=== PATIENT | male | born 2000 | race Asian ===

== ENCOUNTER 2021-10-06 05:06 | Emergency (ER) | payer BC, SELFPAY ==
[2021-10-06 05:12] VITALS: PULSE 64; RESP 24; TEMP 36.8; O2SAT 100
--- NOTE | 2021-10-06 05:18 | ED.GENADUL_ITS ---
Discharge Plan Disposition Patient Disposition: HOME Condition: Good Discharge Details Chief Complaint: Nausea/Vomit/Diar Clinical Impression: Vomiting Primary Care Provider: None,None ED Provider: Valente Becerra Home Meds and New Rx's Prescriptions: No Action No Known Home Meds Discharge Instructions Instructions: Ondansetron (By mouth), Acute Nausea and Vomiting (ED) Additional Instructions: At this time your laboratory work-up is returned and is very reassuring. There is no evidence of pancreatitis or gallbladder problem. New symptoms at this time appear consistent with a reaction likely to something that you ate. Please take the Zofran as needed for nausea. Stick with a mild liquid diet for the next 12 to 24 hours and then gradually advance her diet with crackers, oatmeal, bananas and rice. Avoid fatty and greasy foods. If you notice any worsening of your symptoms, or any new symptoms such as vomiting, diarrhea, fever, chills, shortness of breath, chest pain, numbness, weakness, or fainting , please return immediately to the emergency department for reevaluation. Please follow up with your primary care provider as soon as possible for reassessment and reevaluation. As always, it was a pleasure participating in your medical care today. Medical Decision Making This is a 21-year-old male who presents today for vomiting. Patient states that starting at 1 AM this evening he has had multiple persistent episodes of vomiting throughout the night. He states that he is now just vomiting up bile. He denies any hematemesis. He denies abdominal pain but does admit to intermittent cramping. He denies any diarrhea. He denies any other sick contacts. Patient did go out to eat and ate the [employer] [place]. He states that no one else got sick go from the restaurant. He does smoke marijuana and smokes 1-2 joints per day occasionally. He denies any change in frequency, or use. He denies any alcohol except for a single beer this evening. No other complaints at this time. No other modifying factors. Physical exam demonstrates dry mucous membranes, no pain to McBurney's point. Negative Telles sign. Differential is highest for gastroenteritis, potentially foodborne. Will give Zofran, rehydrate evaluate for pancreatitis. Symptoms may be secondary to cyclic vomiting syndrome, but he denies any history of this. Will monitor closely and reassess. 6:14 AM On reassessment patient has complete resolution of his symptoms. He is able to tolerate p.o. He feels better. He feels comfortable and would like to go home. Laboratory work-up demonstrates no white count bandemia or left shift. BUN and anion gap are slightly elevated, reflective of his mild dehydration. Lipase is normal. Repeat abdominal exam shows no signs of an acute surgical abdomen. Signs and symptoms appear consistent with mild gastroenteritis, potentially from something he ate. Cyclic vomiting syndrome seems less likely at this time. Patient will go home with Zofran. Recommend liquid diet for the next 12 to 24 hours. Discussed red flags which to return. I have extensively reviewed the treatment plan and discharge instructions with the patient. I have addressed all patient concerns at this time. The patient was made aware of what symptoms to monitor for that would warrant a return to the emergency department. Discussed the plan with the patient, they demonstrate verbal understanding and agreement with our assessment and plan at this time. The documentation in this chart was dictated using [employer] dictation software. Please excuse any dictation errors. HPI General Date/Time Provider Initiated Documentation: 10/06/21 05:08 . HPI Narrative: This is a 21-year-old male who presents today for vomiting. Patient states that starting at 1 AM this evening he has had multiple persistent episodes of vomiting throughout the night. He states that he is now just vomiting up bile. He denies any hematemesis. He denies abdominal pain but does admit to intermitt ent cramping. He denies any diarrhea. He denies any other sick contacts. Patient did go out to eat and ate the [employer] [place]. He states that no one else got sick go from the restaurant. He does smoke marijuana and smokes 1- 2 joints per day occasionally. He denies any change in frequency, or use. He denies any alcohol except for a single beer this evening. No other complaints at this time. No other modifying factors. Related Data Home Medications Medication Instructions Recorded Confirmed Unknown [No Known Home Meds] 10/06/21 10/06/21 Allergies Allergy/AdvReac Type Severity Reaction Status Date / Time No Known Allergies Allergy Unverified 10/06/21 05:16 General Stated Complaint: Nausea/Vomit/Diar MAXWELL: 3 Review of Systems All systems reviewed & are unremarkable except as noted in HPI and below PFSH All Active Problems (Updated 10/06/21 @ 06:17 by Valente Becerra DO) Vomiting (Acute) Social History Smoking/Tobacco Use Status: Current every day Tobacco Type: e-cigarettes Smoking risk assessment performed?: Yes Alcohol Intake: current Alcohol Intake frequency: a few times a week Alcohol type: beer Drug use: Occasionally Substance use type: marijuana Exam Narrative Exam Narrative: 1.Const: Well-nourished, Well-developed, appearing stated age 2.Eyes: PERRL, no conjunctival injection, and symmetrical lids. 3.ENT: Atraumatic external nose and ears. Dry t MM. Neck: Symmetric, trachea midline, No thyromegaly. 4.CVS: +S1/S2, No murmurs or gallops. Peripheral pulses 2+ and equal in all extremities. Brisk capillary refill in all extremities. 5.RESP: Unlabored respiratory effort. Clear to auscultation bilaterally. No wheezes rales or rhonchi 6.GI: Soft, Nontender/Nondistended, No hepatosplenomegaly. No guarding or rebound. No pain at McBurney's point. Negative Telles sign 7.MSK: Normocephalic/Atraumatic, Extremities w/o deformity or ttp No cyanosis or clubbing, Normal movement of all extremities 8.Skin: Warm, Dry. No rashes or lesions. 9.Neuro: slip feeder II-XII grossly intact. Sensation grossly intact, no focal neurologic deficits. 10.Psych: (AAO) x3. Appropriate mood and affect Course Vital Signs Vital signs: Vital Signs Temperature 36.8 C 10/06/21 05:12 Pulse 64 10/06/21 05:12 Respiratory Rate 24 10/06/21 05:12 Pulse Oximetry 100 10/06/21 05:12 Temperature 36.8 C 10/06/21 05:12 Temperature Source Skin 10/06/21 05:12 Pulse 64 10/06/21 05:12 Respiratory Rate 24 10/06/21 05:12 Pulse Oximetry 100 10/06/21 05:12 Oxygen Delivery Method Room Air 10/06/21 05:12 Oxygen Flow Rate 0 10/06/21 05:12
[2021-10-06 05:27] VITALS: BP 138/82
[2021-10-06] MEDS: Normal Saline 1,000 ML 1000 ML IV (05:28)
[2021-10-06] MEDS: Ondansetron 4 MG/2 ML VIAL IVP (05:28)
[2021-10-06 05:39] LABS: ALT 26 U/L (16-63); AST 37 U/L (15-37); Albumin 4.3 g/dL (3.4-5.0); Alkaline Phosphatase 72 U/L (46-116); Anion Gap 13.9 mmol/L (3-11); BUN 22 mg/dL (7-18); Bilirubin, Total 0.8 mg/dL (0.2-1.0); CO2 22.1 mmol/L (21.0-32.0); Calcium 8.4 mg/dL (8.5-10.1); Chloride 103 mmol/L (98-107); Glucose 131 mg/dL (74-106); Lipase 24 U/L (73-393); Potassium 3.9 mmol/L (3.5-5.1); Sodium 139 mmol/L (136-145); Total Protein 7.3 g/dL (6.4-8.2)
[2021-10-06] MEDS: Metoclopramide 10 MG/2 ML VIAL IVP (05:55)
[2021-10-06] MEDS: Ondansetron O.D.T. 4 MG TABEF, 3 TABS/BTL PO (06:37)
[2021-10-06 06:38] VITALS: BP 102/42; PULSE 64; RESP 14; TEMP 37.7; O2SAT 98
== END 2021-10-06 06:39 | disposition home or self-care (01) ==
PROVIDERS: Emergency Provider Student in an Organized Health Care Education/Training Program
DX: R11.10 Vomiting, unspecified (principal)
CPT/HCPCS: 80053; 83690; 96361; 96374; 96375; 99284; 99283; J2405; J2765

== ENCOUNTER 2021-11-10 06:54 | Emergency (ER) | payer BC, SELFPAY ==
[2021-11-10 07:03] VITALS: BP 123/74; PULSE 66; RESP 17; TEMP 36.7; O2SAT 100
--- NOTE | 2021-11-10 07:15 | DI.CT_ITS ---
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 TECHNIQUE: Imaging Protocol: Axial computed tomography images with coronal and sagittal reformatted images were created and reviewed COMPARISON: No exams were available for comparison FINDINGS: Ventricles and Extra axial spaces: Normal in size and morphology for the patient's age. Hemorrhage: None. Cerebral parenchyma: Normal. Midline shift: None. Brainstem/Cerebellum: Normal. Calvarium: Normal. Visualized Paranasal sinuses/Mastoids: Clear. Soft Tissues: Unremarkable. IMPRESSION: 1. No acute intracranial process. 2. Results of this exam have been verbally communicated with provider. RADIATION DOSE DELIVERED: 836.18mGy.cm Total DLP DATA REPOSITORY: All CT scans at this facility are submitted to the National Radiology Data Registry (NRDR) Dose Index Registry (DIR) with the [employer] [place] [employer] [employer] (ACR). RADIATION OPTIMIZATION: All CT scans at this facility use at least one of these dose optimization te chniques: automated exposure control; mA and/or kV adjustment per patient size (includes targeted exa ms where dose is matched to clinical indication); or iterative reconstruction.
--- NOTE | 2021-11-10 07:24 | ED.GENADUL_ITS ---
Discharge Plan Disposition Patient Disposition: STILL A PATIENT Discharge Details Chief Complaint: Nausea/Vomit/Diar Primary Care Provider: None,None ED Provider: Stephen Portillo Home Meds and New Rx's Prescriptions: No Action No Known Home Meds Medical Decision Making 21-year-old male presents with 3 days of morning time vomiting and nausea. Associated with insomnia, for speech and fast thoughts. Hemodynamically stable afebrile nontoxic abdomen soft nontender nondistended. Patient does appear moderately uncomfortable. Neurologically intact cranial nerves II through XII intact, motor 5 strength upper and lower extremities; patient does have fast speech, is easily redirectable and cooperative, denies SI or HI denies hallucinations. Endorses safe comfortable living environment. 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 Labs imaging fluids antiemetic anxiolytics disposition pending reassessment. HPI General Date/Time Provider Initiated Documentation: 11/10/21 07:12 . HPI Narrative: 21-year-old male endorses history of insomnia, presents with 3 days of nausea and vomiting mainly in the morning associate with mild headache, endorses relief from nausea during the middle of the day with return of symptoms sometimes in the evening and most often in the morning hours. Denies history of abdominal surgical history. Denies medical history. Does not take any medications at this time. Smokes a moderate amount of marijuana. Does endorse rapid thoughts and speech as well as poor focus. Lives with his friend/roommate denies any issues Related Data Home Medications Medication Instructions Recorded Confirmed Unknown [No Known Home Meds] 10/06/21 11/10/21 Allergies Allergy/AdvReac Type Severity Reaction Status Date / Time No Known Allergies Allergy Unverified 11/10/21 07:13 General Stated Complaint: Nausea/Vomit/Diar MAXWELL: 3 Review of Systems Narrative: Review of Systems Constitutional: negative Eyes: negative ENT: negative Cardiovascular: negative Respiratory: negative Gastrointestinal: Nausea, vomiting : negative Musculoskeletal: negative Skin: negative Neurologic: Insomnia Psych: negative PFSH Social History Smoking/Tobacco Use Status: Current every day Tobacco Type: e-cigarettes Smoking risk assessment performed?: Yes Alcohol Intake: current Alcohol Intake frequency: a few times a week Alcohol type: beer Drug use: Occasionally Substance use type: marijuana Do you feel safe at home: Yes Do you feel safe in your relationship?: Yes Exam Narrative Exam Narrative: Physical Examination General: alert, awake, cooperative, mildly uncomfortable, dry heaving HEENT: normocephalic, atraumatic; PERRL, EOM intact, conjunctiva normal; no nasal discharge; moist mucous membranes, oral and pharyngeal mucosa normal, tolerating secretions Neck: supple, trachea midline; full ROM Chest: normal to inspection Respiratory: normal respiratory effort, speaking in full sentences, clear to auscultation, no wheezing, rales or rhonchi Cardiac: regular rate, regular rhythm, S1S2 intact, no murmurs rubs or gallops GI: abdomen soft, non-tender, non-distended; no palpable mass or hepatosplenomegaly Skin: no lesions, rashes or trauma appreciated Neuro: AAOx3, normal speech, moving all extremities; cranial nerves II through XII intact, 5/5 strength upper and lower extremities bilaterally Extremities: No peripheral edema Psych: Somewhat fast pressured speech, denies SI HI or hallucinations Course Vital Signs Vital signs: Vital Signs Temperature 36.7 C 11/10/21 07:03 Pulse 66 11/10/21 07:03 Respiratory Rate 17 11/10/21 07:03 Blood Pressure 123/74 11/10/21 07:03 Pulse Oximetry 100 11/10/21 07:03 Temperature 36.7 C 11/10/21 07:03 Temperature Source Temporal Artery Scan 11/10/21 07:03 Pulse 66 11/10/21 07:03 Respiratory Rate 17 11/10/21 07:03 Respiratory Effort Non-Labored 11/10/21 07:07 Blood Pressure 123/74 11/10/21 07:03 Blood Pressure Position Supine 11/10/21 07:03 Pulse Oximetry 100 11/10/21 07:03 Oxygen Delivery Method Room Air 11/10/21 07:03 Oxygen Flow Rate 0 11/10/21 07:03 Pain Level 5 11/10/21 07:03
[2021-11-10] MEDS: Normal Saline 1,000 ML 1000 ML IV ×2 (07:25→09:38)
[2021-11-10 07:32] LABS: Abs Immature Grans 0.01 10^3/uL (0.0-0.06); Absolute Basophil Count 0.03 10^3/uL (0.0-0.2); Absolute Eosinophil Count 0.02 10^3/uL (0.0-0.7); Absolute Lymphocyte Count 1.06 10^3/uL (1.2-3.4); Absolute Monocyte Count 0.37 10^3/uL (0.1-0.8); Absolute Neutrophil Count 3.31 10^3/uL (1.2-6.7); Basophils % 0.6; Eosinophils % 0.4; HCT 44.8 % (40.0-50.0); Immature Grans % 0.2; Lymphocytes % 22.1; MCH 29.3 pg (27.0-33.0); MCHC 33.5 % (32.0-36.0); MCV 88 fL (80-95); MPV 9.9 fL (8.0-11.0); Monocytes % 7.7; Platelet Count 246 10^3/uL (130-400); RBC 5.12 10^6/uL (4.36-5.78); RDW 12.5 % (11.8-14.1); RDW-SD 40.2 fL
[2021-11-10] MEDS: Famotidine 20 MG/2 ML VIAL IVP (07:43)
[2021-11-10] MEDS: LORazepam 2 MG/ML VIAL 1 MG IVP (07:43)
[2021-11-10] MEDS: Ondansetron 4 MG/2 ML VIAL IVP (07:43)
[2021-11-10 07:51] LABS: ALT 22 U/L (16-63); AST 15 U/L (15-37); Albumin 4.2 g/dL (3.4-5.0); Alkaline Phosphatase 76 U/L (46-116); Anion Gap 12.6 mmol/L (3-11); BUN 15 mg/dL (7-18); Bilirubin, Total 0.8 mg/dL (0.2-1.0); CO2 24.4 mmol/L (21.0-32.0); CREATININE 1.1 mg/dL (0.70-1.30); Calcium 8.6 mg/dL (8.5-10.1); Chloride 104 mmol/L (98-107); Glucose 133 mg/dL (74-106); Lipase 30 U/L (73-393); Potassium 3.2 mmol/L (3.5-5.1); Sodium 141 mmol/L (136-145); Total Protein 7.3 g/dL (6.4-8.2)
[2021-11-10 08:23] LABS: Acetaminophen < 2 ug/mL (10-30); Salicylate < 2.8 mg/dL (<2.8)
[2021-11-10 09:17] LABS: Bilirubin Negative (Negative); Blood Negative (Negative); Clarity Cloudy (Clear); Glucose Negative (Negative); Ketones 15 mg/dL (Negative); Leukocyte Esterase Negative (Negative); Nitrite Negative (Negative); Urobilinogen 0.2 EU/dL (Up TO 0.2); pH 8.5 (5-8)
[2021-11-10 09:23] LABS: Bacteria Negative HPF (Negative); C & S Indicated? No; Casts 0-2 Fine Granular LPF (Negative); Crystals Many Amorphous HPF (Negative); Epithelial Cells Rare HPF (Negative); Mucus Negative (Negative); RBC Negative HPF (0-2); WBC Negative HPF (0-5)
[2021-11-10 09:34] LABS: *AMPHETAMINES SCREEN URINE Negative (Negative); *BARBITURATES SCREEN URINE Negative (Negative); *BENZODIAZEPINES SCREEN URINE Negative (Negative); Cannabinoids THC Positive (Negative); Cocaine Screen,Urine Negative (Negative); METHADONE URINE SCREEN Negative (Negative); OPIATES URINE SCREEN Negative (Negative)
[2021-11-10 09:37] LABS: Tricyclic Antidepressants Negative (Negative)
[2021-11-10] MEDS: Metoclopramide 10 MG/2 ML VIAL IVP (09:38)
[2021-11-10] MEDS: Potassium Chloride 20 MEQ TABCR 40 MEQ PO (10:21)
[2021-11-10 10:25] VITALS: BP 123/74; PULSE 66; RESP 17; TEMP 36.7; O2SAT 100
--- NOTE | 2021-11-10 10:31 | NUR.NOTE ---
Nursing Note: Referral given to Care Management for vomiting/establish care in 1 to 2 week.
--- NOTE | 2021-11-10 12:20 | W.EDPROG ---
Date of service: 11/10/21 Time of Service: 07:30 Medical Decision Making Patient signed out to me at time of shift change by Dr. Portillo with CT head, lab, reassessment pending. CT head resulted as negative per radiology. Labs reviewed, WBC 4.8, hemoglobin 15, potassium 3.2, anion gap 12.6, creatinine 1.1, urine ketones negative. Patient reporting continued nausea, plan for additional liter of normal saline, 10 mg IV Reglan. Patient reported to nursing that he feels much better and wants to go home at this point. On my reassessment, patient is standing up, dressed, states that he feels much better and would like to go home in order to take care of things and start the day. He is taking p.o. without issue. Patient did not appear to have pressured speech or further symptoms of acute bria at this time. Unclear etiology of patient's symptoms at this time, however patient does not appear to have an acute life-threatening medical emergency. Plan for Rx Zofran, patient given p.o. potassium for repletion. Patient reports that he moved here recently and is working on getting a primary care doctor. Patient was placed on care management list to establish EP and for follow-up for this visit. I had a discussion with Patient regarding return to emergency department precautions, home care, and importance of outpatient follow-up. Pt verbalizes understanding of the plan and is amenable. Patient discharged to home with clear plan for outpatient follow-up. All questions were answered. Disposition decision was made weighing the risks and benefits of hospitalization versus outpatient treatment, the risk for further decompensation, and the patient's wishes. Medical Records Medical records reviewed: Yes I reviewed the patient's medical records. Imaging Data Radiologic Study: Attestation: I personally reviewed and interpreted this imaging study as follows: Radiologist's impression: EXAM: ? 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 ? TECHNIQUE:? Imaging Protocol: Axial computed tomography images with coronal and sagittal reformatted images were created and reviewed COMPARISON:? No exams were available for comparison FINDINGS: Ventricles and Extra axial spaces: Normal in size and morphology for the patient's age. Hemorrhage: None. Cerebral parenchyma: Normal. Midline shift: None. Brainstem/Cerebellum: Normal. Calvarium: Normal. Visualized Paranasal sinuses/Mastoids: Clear. Soft Tissues: Unremarkable. IMPRESSION: 1. No acute intracranial process. 2. Results of this exam have been verbally communicated with provider. Lab Data Lab results reviewed: Yes I reviewed the patient's lab results. Labs: Laboratory Tests Range/Units 11/10/21 11/10/21 11/10/21 07:24 07:24 07:38 WBC (4.4-10.8) 10^3/uL 4.80 RBC (4.36-5.78) 10^6/uL 5.12 Hgb (13.5-17.5) g/dL 15.0 Hct (40.0-50.0) % 44.8 MCV (80-95) fL 88 MCH (27.0-33.0) pg 29.3 MCHC (32.0-36.0) % 33.5 RDW (11.8-14.1) % 12.5 Plt Count (130-400) 10^3/uL 246 MPV (8.0-11.0) fL 9.9 Immature Gran % 0.2 Neutrophils % 69.0 Lymphocytes % 22.1 Monocytes % 7.7 Eosinophils % 0.4 Basophils % 0.6 Nucleated RBC % (0.0-0.3) % 0.0 Absolute Neutrophils (1.2-6.7) 10^3/uL 3.31 Absolute Lymphocytes (1.2-3.4) 10^3/uL 1.06 L Absolute Monocytes (0.1-0.8) 10^3/uL 0.37 Absolute Eosinophils (0.0-0.7) 10^3/uL 0.02 Absolute Basophils (0.0-0.2) 10^3/uL 0.03 Sodium (136-145) mmol/L 141 Potassium (3.5-5.1) mmol/L 3.2 L Chloride (98-107) mmol/L 104 Carbon Dioxide (21.0-32.0) mmol/L 24.4 Anion Gap (3-11) mmol/L 12.6 H BUN (7-18) mg/dL 15 Creatinine (0.70-1.30) mg/dL 1.1 Estimated GFR/1.73 m2 (mL/min/1.73m2) >= 60.00 Glucose (74-106) mg/dL 133 H Calcium (8.5-10.1) mg/dL 8.6 Total Bilirubin (0.2-1.0) mg/dL 0.8 AST (15-37) U/L 15 ALT (16-63) U/L 22 Alkaline Phosphatase (46-116) U/L 76 Total Protein (6.4-8.2) g/dL 7.3 Albumin (3.4-5.0) g/dL 4.2 Lipase (73-393) U/L 30 Urine Color (Yellow) Urine Clarity (Clear) Urine pH (5-8) Ur Specific [place] (1.005-1.025) Urine Protein (Negative) mg/dL Urine Ketones (Negative) mg/dL Urine Blood (Negative) Urine Nitrite (Negative) Urine Bilirubin (Negative) Urine Urobilinogen (Up TO 0.2) EU/dL Ur Leukocyte Esterase (Negative) Urine RBC (0-2) HPF Urine WBC (0-5) HPF Ur Epithelial Cells (Negative) HPF Urine Crystals (Negative) HPF Urine Bacteria (Negative) HPF Urine Casts (Negative) LPF Urine Mucus (Negative) Ur Culture Indicated? Urine Glucose (Negative) mg/dL Salicylates (<2.8) mg/dL < 2.8 Urine Opiates Screen (Negative) Urine Methadone Screen (Negative) Acetaminophen (10-30) ug/mL < 2 Ur Barbiturates Screen (Negative) Ur Tricyclics Screen (Negative) Ur Amphetamines Screen (Negative) U Benzodiazepines Scrn (Negative) Urine Cocaine Screen (Negative) Ur THC Screen (Negative) Range/Units 11/10/21 11/10/21 09:08 09:08 WBC (4.4-10.8) 10^3/uL RBC (4.36-5.78) 10^6/uL Hgb (13.5-17.5) g/dL Hct (40.0-50.0) % MCV (80-95) fL MCH (27.0-33.0) pg MCHC (32.0-36.0) % RDW (11.8-14.1) % Plt Count (130-400) 10^3/uL MPV (8.0-11.0) fL Immature Gran % Neutrophils % Lymphocytes % Monocytes % Eosinophils % Basophils % Nucleated RBC % (0.0-0.3) % Absolute Neutrophils (1.2-6.7) 10^3/uL Absolute Lymphocytes (1.2-3.4) 10^3/uL Absolute Monocytes (0.1-0.8) 10^3/uL Absolute Eosinophils (0.0-0.7) 10^3/uL Absolute Basophils (0.0-0.2) 10^3/uL Sodium (136-145) mmol/L Potassium (3.5-5.1) mmol/L Chloride (98-107) mmol/L Carbon Dioxide (21.0-32.0) mmol/L Anion Gap (3-11) mmol/L BUN (7-18) mg/dL Creatinine (0.70-1.30) mg/dL Estimated GFR/1.73 m2 (mL/min/1.73m2) Glucose (74-106) mg/dL Calcium (8.5-10.1) mg/dL Total Bilirubin (0.2-1.0) mg/dL AST (15-37) U/L ALT (16-63) U/L Alkaline Phosphatase (46-116) U/L Total Protein (6.4-8.2) g/dL Albumin (3.4-5.0) g/dL Lipase (73-393) U/L Urine Color (Yellow) Yellow Urine Clarity (Clear) Cloudy Urine pH (5-8) 8.5 H Ur Specific [place] (1.005-1.025) 1.020 Urine Protein (Negative) mg/dL 30 H Urine Ketones (Negative) mg/dL 15 H Urine Blood (Negative) Negative Urine Nitrite (Negative) Negative Urine Bilirubin (Negative) Negative Urine Urobilinogen (Up TO 0.2) EU/dL 0.2 Ur Leukocyte Esterase (Negative) Negative Urine RBC (0-2) HPF Negative Urine WBC (0-5) HPF Negative Ur Epithelial Cells (Negative) HPF Rare Urine Crystals (Negative) HPF Many Amorphous Urine Bacteria (Negative) HPF Negative Urine Casts (Negative) LPF 0-2 Fine Granular Urine Mucus (Negative) Negative Ur Culture Indicated? No Urine Glucose (Negative) mg/dL Negative Salicylates (<2.8) mg/dL Urine Opiates Screen (Negative) Negative Urine Methadone Screen (Negative) Negative Acetaminophen (10-30) ug/mL Ur Barbiturates Screen (Negative) Negative Ur Tricyclics Screen (Negative) Negative Ur Amphetamines Screen (Negative) Negative U Benzodiazepines Scrn (Negative) Negative Urine Cocaine Screen (Negative) Negative Ur THC Screen (Negative) Positive A Sign Out Sign Out Data: Sign Out Comment: pending CT head, labs; reassessment of symptoms post meds; cannabinoid hyperemesis v migraine v cyclic vomiting v consider psych v intracranial mass Last updated by Stephen Portillo MD at 11/10/21 08:14 Discharge Plan Disposition Patient Disposition: HOME Condition: Stable Discharge Details Clinical Impression: Vomiting, Hypokalemia Primary Care Provider: None,None ED Provider: Berkley Corley Home Meds and New Rx's Prescriptions: New ondansetron 4 mg tablet,disintegrating 4 mg PO BID PRN (Reason: nausea and vomiting) Qty: 8 0RF Discharge Instructions Instructions: Ondansetron (By mouth), Acute Nausea and Vomiting (ED) Additional Instructions: Please return immediately to the emergency department if you develop any new or worsening symptoms, if your condition does not improve as expected, or if you become otherwise concerned. It is extremely important that you call soon as possible to make an appointment to be seen in follow-up for this visit by a primary care doctor. Discharge Data Discharge Date/Time-TO BE ENTERED AT DEPARTURE: 11/10/21 10:25
== END 2021-11-10 10:25 | disposition home or self-care (01) ==
PROVIDERS: Emergency Medicine; Emergency Provider Student in an Organized Health Care Education/Training Program
DX: R11.2 Nausea with vomiting, unspecified (principal); E87.6 Hypokalemia; R51.9 Headache, unspecified
CPT/HCPCS: 36415; 80053; 80307; 83690; 96361; 96374; 96375; 99284; 70450; 80329; 81003; 81015; 85025; J2060; J2405; J2765